=== PATIENT | male | born 1990 | race Two or more races ===

== ENCOUNTER 2020-07-17 12:44 | Emergency (ER) | payer MEDICAID ==
[~2020-07-17] VITALS: Ht 167.6 cm; Wt 77.0 kg
[2020-07-17] MEDS ORDERED: GUAI600T26 MT (14:13)
[2020-07-17] MEDS ORDERED: FLUT9.9S BOTHNSTRLS (14:13)
[2020-07-17 14:24] VITALS: BP 120/78
== END 2020-07-17 14:25 | disposition home or self-care (01) ==
LOC: ER 12:44
DX: J06.9 Acute upper respiratory infection, unspecified (principal)
CPT/HCPCS: 99283